=== PATIENT | female | born 1935 | race Caucasian/White ===

== ENCOUNTER → 2017-05-07 | Outpatient (CLI) | payer MEDICARE, MEDICAID ==
[~2017-05-07] MED LIST: NAPR220C PO
[2017-05-07 09:20] LABS: Basophils # (auto) 0 uL; Basophils % (auto) 0.3 % (0.0-2.0); CONDITION Y; DEFINITIVE SEE PRINTOUT; Eosinophils # (auto) 0.1 uL; Eosinophils % (auto) 0.7 % (0.0-7.0); Hematocrit 34.3 % (36.0-46.0); Hemoglobin 11.6 g/dL (12.2-16.2); Lymphocytes # (auto) 1.3 uL; Lymphocytes % (auto) 16.3 % (10.0-50.0); Mean Corpuscular Hemoglobin 26.9 pg (28.0-32.0); Mean Corpuscular Hgb Conc. 33.7 g/dL (32.0-36.0); Mean Corpuscular Volume 79.8 fL (80.0-100.0); Mean Platelet Volume 7.9 fL (7.4-10.4); Monocytes # (auto) 0.6 uL; Monocytes % (auto) 7.7 % (0.0-12.0); Neutrophils # (auto) 6.2 uL; Platelet Count (auto) 346 10^3/uL (140-450); Red Cell Distribution Width 13.6 % (11.6-16.0); White Blood Cell 8.2 10^3/uL (4.4-10.8)
[2017-05-07 09:45] LABS: Bilirubin, Total 0.8 mg/dL (0.2-1.0); Calcium 8.8 mg/dL (8.5-10.1); Potassium 3.9 mmol/L (3.5-5.1); Total Protein 7.3 g/dL (6.4-8.2)
== END | disposition home or self-care (01) ==
LOC: LAB 08:07
PROVIDERS: ATTEND Family Medicine
DX: D64.9 Anemia, unspecified (principal); K21.9 Gastro-esophageal reflux disease without esophagitis; E55.9 Vitamin D deficiency, unspecified; M05.89 Other rheumatoid arthritis with rheumatoid factor of multiple sites
CPT/HCPCS: 36415; 80053; 80061; 82306; 82607; 84443; 85025

== ENCOUNTER → 2017-05-19 | Outpatient (CLI) | payer MEDICARE, MEDICAID | END | disposition home or self-care (01) | LOC: LAB 07:59 | PROVIDERS: ATTEND Family Medicine | DX: E05.90 Thyrotoxicosis, unspecified without thyrotoxic crisis or storm (principal); N39.0 Urinary tract infection, site not specified | CPT/HCPCS: 36415; 84439; 84443; 84480; 84481 ==

== ENCOUNTER → 2017-06-26 | Outpatient (CLI) | payer MEDICARE, MEDICAID | END | disposition home or self-care (01) | LOC: LAB 07:30 | PROVIDERS: ATTEND Family Medicine | DX: E03.9 Hypothyroidism, unspecified (principal) | CPT/HCPCS: 36415; 84439; 84443; 84480; 84481 ==

== ENCOUNTER → 2017-07-17 | Outpatient (CLI) | payer MEDICARE, MEDICAID ==
[2017-07-17 09:42] LABS: Hemoglobin 11.5 g/dL (12.2-16.2)
[2017-07-17 09:46] LABS: Hematocrit 34.2 % (36.0-46.0); Mean Corpuscular Hemoglobin 26.4 pg (28.0-32.0); Mean Corpuscular Hgb Conc. 33.6 g/dL (32.0-36.0); Mean Corpuscular Volume 78.6 fL (80.0-100.0); Mean Platelet Volume 6.9 fL (6.9-10.8); Platelet Count (auto) 330 10^3/uL (140-450); Red Cell Distribution Width 13.5 % (11.8-14.3)
[2017-07-17 10:08] LABS: Albumin 3.1 g/dL (3.4-5.0); BUN/Creatinine Ratio 30.6; Bilirubin, Total 0.8 mg/dL (0.2-1.0); Calcium 8.5 mg/dL (8.5-10.1); Potassium 3.7 mmol/L (3.5-5.1); Total Protein 7.6 g/dL (6.4-8.2)
[2017-07-17 11:36] LABS: White Blood Cell 1.9 10^3/uL (4.4-10.8)
[2017-07-17 11:37] LABS: Metamyelocytes % 0; Microcytosis Slight; Myelocytes % 0; Platelet Estimate Adequate; Promyelocytes % 0; Reactive Lymphocytes 0
[2017-07-17 11:38] LABS: Ovalocytes FEW
== END | disposition home or self-care (01) ==
LOC: LAB 08:47
DX: E05.90 Thyrotoxicosis, unspecified without thyrotoxic crisis or storm (principal); D64.9 Anemia, unspecified
CPT/HCPCS: 36415; 80053; 84439; 84443; 84481; 85007; 85027

== ENCOUNTER → 2017-09-12 | Outpatient (CLI) | payer MEDICARE, MEDICAID ==
[2017-09-12 14:52] LABS: BUN/Creatinine Ratio 25.4; Bilirubin, Total 0.4 mg/dL (0.2-1.0); Calcium 8.2 mg/dL (8.5-10.1); Potassium 3.9 mmol/L (3.5-5.1); Total Protein 7.6 g/dL (6.4-8.2)
== END | disposition home or self-care (01) ==
LOC: LAB 13:59
DX: E55.9 Vitamin D deficiency, unspecified (principal); E05.90 Thyrotoxicosis, unspecified without thyrotoxic crisis or storm
CPT/HCPCS: 36415; 80053; 82306; 84439; 84443; 84481

== ENCOUNTER → 2017-12-16 | Outpatient (CLI) | payer MEDICARE, MEDICAID ==
[2017-12-16 14:54] LABS: Albumin 3.2 g/dL (3.4-5.0); BUN/Creatinine Ratio 21.7; Bilirubin, Total 0.5 mg/dL (0.2-1.0); Potassium 3.9 mmol/L (3.5-5.1); Total Protein 7.9 g/dL (6.4-8.2)
[2017-12-16 15:15] LABS: Free T3 7.09 pg/mL (2.3-4.2); Free T4 (Free Thyroxine) 1.63 ng/dL (0.89-1.76)
== END | disposition home or self-care (01) ==
LOC: LAB 13:54
PROVIDERS: ATTEND Family Medicine
DX: E05.90 Thyrotoxicosis, unspecified without thyrotoxic crisis or storm (principal)
CPT/HCPCS: 36415; 80053; 84439; 84443; 84481; 86376; 86800

== ENCOUNTER → 2018-02-18 | Outpatient (CLI) | payer MEDICARE, MEDICAID ==
[2018-02-18 14:04] LABS: Albumin 3.2 g/dL (3.4-5.0); BUN/Creatinine Ratio 19.1; Bilirubin, Total 0.5 mg/dL (0.2-1.0); Calcium 8.8 mg/dL (8.5-10.1); Potassium 3.9 mmol/L (3.5-5.1); Total Protein 7.9 g/dL (6.4-8.2)
[2018-02-18 14:48] LABS: Free T3 5.42 pg/mL (2.3-4.2); Free T4 (Free Thyroxine) 1.53 ng/dL (0.89-1.76)
== END | disposition home or self-care (01) ==
LOC: LAB 13:21
DX: E05.90 Thyrotoxicosis, unspecified without thyrotoxic crisis or storm (principal); E03.9 Hypothyroidism, unspecified; K21.9 Gastro-esophageal reflux disease without esophagitis
CPT/HCPCS: 36415; 80053; 84439; 84443; 84481